=== PATIENT | female | born 1975 | race Two or more races ===

== ENCOUNTER 2023-09-09 23:17 | Inpatient (IN) | payer MEDICAID, OTHER ==
[~2023-09-09] VITALS: Ht 162.6 cm; Wt 86.2 kg
[2023-09-09 23:30] VITALS: BP 115/69; PULSE 105; RESP 20; TEMP 98.7; O2SAT 96
[2023-09-09] MEDS ORDERED: NITROGLYCERIN 0.4 MG SL TAB SL PRN (23:45)
[2023-09-09] MEDS ORDERED: MORPHINE SULFATE INJ 2 MG/ml SYRG IV PRN (23:45)
[2023-09-10] VITALS (12 sets, daily range): BP systolic 97–121; BP diastolic 58–77; PULSE 92–106; RESP 16–26; TEMP 98.8; O2SAT 91–97
[2023-09-10 00:56] LABS: Basophils # (auto) 0 10 ^3/uL (0-0.2); Basophils % (auto) 0.2 % (0.0-2.0); Eosinophils # (auto) 0 10 ^3/uL (0-0.8); Eosinophils % (auto) 0.8 % (0.0-7.0); Hematocrit 38.9 % (36.0-46.0); Hemoglobin 13.2 g/dL (12.2-16.2); Lymphocytes # (auto) 0.4 10 ^3/uL (0.4-5.4); Lymphocytes % (auto) 10.8 % (10.0-50.0); Mean Corpuscular Hemoglobin 32.3 pg (28.0-32.0); Mean Corpuscular Hgb Conc. 33.9 g/dL (32.0-36.0); Mean Corpuscular Volume 95.2 fL (80.0-100.0); Monocytes # (auto) 0.2 10 ^3/uL (0-1.3); Monocytes % (auto) 6.3 % (0.0-12.0); Neutrophils % (auto) 81.9 % (37.0-80.0); Red Blood Cells 4.09 10^6/uL (4.0-5.20); Red Cell Distribution Width 12.8 % (11.8-14.3); White Blood Cell 3.7 10^3/uL (4.4-10.8)
[2023-09-10 01:09] LABS: Alanine Aminotransferase 11 U/L (7-40); Albumin 3.8 g/dL (3.2-4.8); Alkaline Phosphatase 70 U/L (46-116); Anion Gap 7 (5-15); Aspartate Aminotransferase 11 U/L (13-40); BUN/Creatinine Ratio 14.4 (10.0-20.0); Blood Urea Nitrogen 13 mg/dL (9-23); Carbon Dioxide 22 mmol/L (20-30); Chloride 108 mmol/L (98-107); Glucose 105 mg/dL (74-106); Potassium 3.3 mmol/L (3.5-5.1); Sodium 137 mmol/L (136-145)
[2023-09-10 01:10] LABS: Bilirubin, Total 0.5 mg/dL (0.2-1.0); Total Protein 6.3 g/dL (5.7-8.2)
[2023-09-10] MEDS ORDERED: DEXTROSE (50%) 50ML SYRG IV PRN (01:45)
[2023-09-10] MEDS ORDERED: POTASSIUM CHL 20MEQ/100ML 100 ML IV ONE (01:45)
[2023-09-10] MEDS: ACCU-CHEK COMFORT CURVE STRIP VI SCH ×5 (04:22→20:09)
[2023-09-10] MEDS: InsuLIN REG 1unit/0.01ml Soln (100units/ml) SC SCH ×5 (04:23→20:10)
[2023-09-10] MEDS ORDERED: SOD CHL 0.9%/ KCL 20MEQ 1,000 ML IV ONE (05:15)
[2023-09-10] MEDS: INSULIN LANTUS (GLARGINE) 1 /0.01ml (100units/ml) SC SCH ×2 (06:30→21:42)
[2023-09-10 07:13] LABS: Chloride 106 mmol/L (98-107); Potassium 4.3 mmol/L (3.5-5.1); Sodium 133 mmol/L (136-145)
[2023-09-10 07:14] LABS: Anion Gap 7 (5-15); Carbon Dioxide 20 mmol/L (20-30)
[2023-09-10 07:19] LABS: BUN/Creatinine Ratio 12.8 (10.0-20.0); Blood Urea Nitrogen 12 mg/dL (9-23); Glucose 332 mg/dL (74-106)
[2023-09-10 08:33] LABS: Urine Bacteria NONE SEEN /hpf (None Seen); Urine Blood Negative /uL (Negative); Urine Clarity Clear (Clear); Urine Color Yellow (Yellow); Urine Protein, UAD Negative (Negative); Urine Specific Gravity 1.024 (1.001-1.035); Urine Urobilinogen Normal (Negative); Urine WBC 1 /hpf (0 - 5)
[2023-09-10] MEDS ORDERED: ONDANSETRON HCL 4 MG/2 ML VIAL IV PRN (13:15)
[2023-09-10 14:16] LABS: Chloride 107 mmol/L (98-107); Potassium 4.2 mmol/L (3.5-5.1); Sodium 136 mmol/L (136-145)
[2023-09-10 14:17] LABS: Anion Gap 8 (5-15); Calcium 8.4 mg/dL (8.7-10.4); Carbon Dioxide 21 mmol/L (20-30)
[2023-09-10 14:22] LABS: BUN/Creatinine Ratio 15.2 (10.0-20.0); Blood Urea Nitrogen 12 mg/dL (9-23); Glucose 240 mg/dL (74-106)
[2023-09-10] MEDS: SODIUM CHLORIDE 0.9% 1,000 ML IV SCH ×2 (14:23→21:49)
[2023-09-11] MEDS: ACCU-CHEK COMFORT CURVE STRIP VI SCH ×4 (02:31→12:00)
[2023-09-11] MEDS: InsuLIN REG 1unit/0.01ml Soln (100units/ml) SC SCH ×4 (02:41→12:00)
[2023-09-11] MEDS ORDERED: FENO160T PO (02:55)
[2023-09-11] MEDS ORDERED: TRAZ-227 PO (02:55)
[2023-09-11] MEDS ORDERED: ATOR-47 PO (02:59)
[2023-09-11] MEDS ORDERED: BUSP15TA60 PO (02:59)
[2023-09-11] MEDS ORDERED: VENL150C58 PO (02:59)
[2023-09-11] MEDS ORDERED: CLON0.5T3 PO (02:59)
[2023-09-11] MEDS: SODIUM CHLORIDE 0.9% 1,000 ML IV SCH ×2 (03:07→09:45)
[2023-09-11 06:29] LABS: Basophils # (auto) 0 10 ^3/uL (0-0.2); Basophils % (auto) 0.4 % (0.0-2.0); Eosinophils # (auto) 0.1 10 ^3/uL (0-0.8); Eosinophils % (auto) 2.6 % (0.0-7.0); Hematocrit 35.5 % (36.0-46.0); Lymphocytes % (auto) 49.6 % (10.0-50.0); Mean Corpuscular Hemoglobin 32.3 pg (28.0-32.0); Mean Corpuscular Hgb Conc. 33.8 g/dL (32.0-36.0); Mean Corpuscular Volume 95.7 fL (80.0-100.0); Monocytes # (auto) 0.3 10 ^3/uL (0-1.3); Monocytes % (auto) 14.2 % (0.0-12.0); Neutrophils # (auto) 0.7 10 ^3/uL (1.6-8.6); Neutrophils % (auto) 33.2 % (37.0-80.0); Nucleated Red Blood Cells % 0.2 %; Red Blood Cells 3.71 10^6/uL (4.0-5.20); Red Cell Distribution Width 12.8 % (11.8-14.3); White Blood Cell 2.1 10^3/uL (4.4-10.8)
[2023-09-11 06:33] LABS: Alanine Aminotransferase 11 U/L (7-40); Albumin 3.3 g/dL (3.2-4.8); Alkaline Phosphatase 76 U/L (46-116); Anion Gap 7 (5-15); Aspartate Aminotransferase 15 U/L (13-40); BUN/Creatinine Ratio 15.5 (10.0-20.0); Bilirubin, Total 0.2 mg/dL (0.2-1.0); Blood Urea Nitrogen 11 mg/dL (9-23); Calcium 7.9 mg/dL (8.7-10.4); Carbon Dioxide 21 mmol/L (20-30); Chloride 111 mmol/L (98-107); Glucose 209 mg/dL (74-106); Magnesium 1.6 mg/dL (1.6-2.6); Potassium 3.7 mmol/L (3.5-5.1); Sodium 139 mmol/L (136-145)
[2023-09-11 06:34] LABS: Total Protein 5.5 g/dL (5.7-8.2)
[2023-09-11] MEDS: INSULIN LANTUS (GLARGINE) 1 /0.01ml (100units/ml) SC SCH (07:36)
[2023-09-11 09:00] VITALS: BP 100/63; PULSE 79; RESP 18; TEMP 98; O2SAT 97
[2023-09-11 12:07] VITALS: BP 106/69; PULSE 75; RESP 17; TEMP 98.3; O2SAT 95
== END 2023-09-11 12:50 | disposition home or self-care (01) | DRG 420 ==
LOC: ER 23:17 → EDBD 23:17 → TELE 23:39 → TELE-EAST 09-11 08:10
PROVIDERS: ADMIT Nurse Practitioner; ATTEND Internal Medicine Geriatric Medicine
DX: E11.10 Type 2 diabetes mellitus with ketoacidosis without coma (principal); E87.8 Other disorders of electrolyte and fluid balance, not elsewhere classified; E86.0 Dehydration
CPT/HCPCS: 36415; 80048; 80053; 81001; 82010; 82962; 83605; 83735; 84484; 85025; 96360; 96361; 99291; G0378; J1815; J2405; J3480